=== PATIENT | male | born 1995 | race Two or more races ===

== ENCOUNTER 2019-02-20 22:16 | Emergency (ER) | payer SELFPAY ==
[~2019-02-20] VITALS: Ht 165.1 cm; Wt 64.0 kg
--- NOTE | 2019-02-20 22:21 | NUR ---
SOB WITH WHEEZING BILATERALLY, GENERRALIZED HIVES, FACIAL SWELLING ALERT AND ORIENTED, AMBULATORY
[2019-02-20] MEDS ORDERED: methylPREDNISolone SOD SUCC 125 MG/2ML VIAL ONE (22:30)
[2019-02-20] MEDS ORDERED: FAMOTIDINE/PF INJ 20 MG/2 ML VIAL IV ONE (22:30)
[2019-02-20] MEDS ORDERED: FAMOTIDINE/PF INJ 40 MG in IV D5W 250 ML IV ONE (22:30)
[2019-02-20] MEDS ORDERED: methylPREDNISolone SOD SUCC 125 MG/2ML VIAL IV ONE (22:30)
[2019-02-20] MEDS ORDERED: diphenhydrAMINE HCL 50 MG/ML VIAL IV ONE (22:30)
[2019-02-20] MEDS ORDERED: diphenhydrAMINE HCL 50 MG/ML VIAL ONE (22:30)
--- NOTE | 2019-02-21 00:45 | NUR ---
IV removed. Catheter intact and site benign. Pressure and 4x4 applied to site. No bleeding noted. Patient discharged to home in stable condition. Written and verbal after care instructions given. Patient verbalizes understanding of instruction pt. ambulatory with a steady gait and vital stable.
[2019-02-21 00:47] VITALS: BP 112/68
== END 2019-02-21 00:47 | disposition home or self-care (01) ==
LOC: ER 22:23
DX: L50.0 Allergic urticaria (principal); R21 Rash and other nonspecific skin eruption
CPT/HCPCS: 96365; 96375; 99283; J1200; J2930; J3490; J7060